=== PATIENT | female | born 1940 | race Caucasian/White ===

== ENCOUNTER → 2022-11-26 13:36 | Outpatient (REF) | payer MEDICARE, SELFPAY ==
--- NOTE | 2022-11-26 13:41 | CA_ITS ---
Transthoracic Echocardiogram Patient (Last, First, Middle): Jorge Arrieta, Gender: Female Date of : 1940 Age: 82 Procedure Date: 11/26/2022 Procedure Type: Transthoracic Echocardiogram Location: [facility] Height: 162.56 cm Weight: 73.48 kg BSA: 1.79 m2 Heart Rate: bpm BP: 130 / 80 mmHg Broadcast Correspondent: TO Referring MD: Franklin Barkley MD Symptoms: DYSPNEA ON EXERTION Study Quality: Fair ECG Rhythm: Sinus Conclusions: - The left ventricular systolic function is normal. The calculated ejection fraction is 58% by biplane method. - There is mild calcification of the aortic valve. - There is moderate posterior mitral annular calcification. Findings Left Ventricle Normal left ventricular cavity size. There is normal left ventricular wall thickness. The left ventricular systolic function is normal. The calculated ejection fraction is 58% by biplane method. There is no evidence of regional wall motion abnormalities. Evidence suggests grade I (mild) diastolic dysfunction. LV peak GLS -17.9%. Right Ventricle Normal right ventricular cavity size and systolic function. Atria Both atria are normal in size. Aortic Valve There is a normal trileaflet aortic valve. There is mild calcification of the aortic valve. There is no aortic valve stenosis. There is trace (trivial) aortic valve regurgitation. Mitral Valve There is moderate posterior mitral annular calcification. There is trace mitral valve regurgitation. There is no mitral valve stenosis. Pulmonic Valve There is trace pulmonic valve regurgitation. Tricuspid Valve There is trace tricuspid valve regurgitation. There is no evidence of pulmonary hypertension. Great Vessels The asc aorta is normal in size. Small plaque is seen in the sino tubular ridge. Venous The inferior vena cava is normal in size and collapses greater than 50% with inspiration. Pericardium/Pleural There is a trivial pericardial effusion. Prior Study Comparison No significant change compared to prior study dated: 01/06/2012. Measurements 2D Linear Measurements IVSd: 0.91 0.6-0.9/0.6-1.0 cm LVIDd: 4.15 3.9-5.3/4.2-5.9 cm LVIDd Index: 2.32 2.4-3.2/2.2-3.1 cm/m2 LVIDs: 2.80 2.0-3.6 cm LVPWd: 0.98 0.7-1.1 cm LA Diam: 3.40 2.7-3.8/3.0-4.0 cm LAIDs Index: 1.90 1.5-2.3 cm/m2 LV Mass: 154.83 67-162/88-224 g LV Mass Index: 86.50 43-95/49-115 g/m2 LVOT Diam: 2.00 3.0+(-)1.3 cm 2D Systolic Function EF 4C: 52.90 >55% EF 2C: 62.80 >55% EF BiP: 58.10 >55% Mitral Valve MV VTI: 0.38 MV Pk Latrell: 1.36 MV Mn Latrell: 0.73 MV Pk Grad: 7.00 MV Mn Grad: 2.00 MV Pk E: 0.83 MV PK A: 1.25 MV Decel Time: 276.00 E/A: 0.70 E'Lateral: 5.00 E'Medial: 4.46 E/E' Med: 18.50 E/E' Lat: 16.50 PHT: 81.00 MVA PHT: 2.72 MVA Continuity: 1.91 Decel Grundy: 2.99 Aortic Valve AoV Pk Latrell: 1.71 AoV Mn Latrell: 1.11 AoV VTI: 0.37 AoV Pk Grad: 12.00 Aov Mn Grad: 6.00 NADINE Cont.VTI: 2.01 LVOT LVOT Pk Latrell: 1.08 LVOT Mn Latrell: 0.63 LVOT VTI: 0.23 LVOT Pk Grad: 5.00 LVOT Mn Grad: 2.00 LVOT Diam: 2.00 LVOT Area: 3.14 Diastolic Function MV Pk E: 0.83 MV Pk A: 1.25 E/A: 0.70 E'Medial: 4.46 E/E' Med: 18.50 E' Laterial: 5.00 E/E' Lat: 16.50 Right Ventricle TAPSE (mm): 29.30 TVS' Latrell: 12.50 Tricuspid Valve TR Pk Latrell: 2.61 TR Pk Grad: 27.00 RA Press: 3.00 RVSP: 30.00 Great Vessels Aorta Sinus of Valsalva: 2.80 2.0-3.5 cm Ao Asc: 3.30 2.1-3.4 cm Updated in Other Vendor System with Status of Final Jose Santana MD electronically signed on 11/27/2022 11:17:59 AM with status of Final
== END ==
LOC: HO.CARD 13:36
PROVIDERS: PCP Family Medicine; Visit Provider Family Medicine
DX: R06.09 Other forms of dyspnea (principal)
CPT/HCPCS: 93306; 93356